=== PATIENT | male | born 1960 | race Caucasian/White ===

== ENCOUNTER 2017-07-11 16:07 | Emergency (ER) | payer OTHER ==
[~2017-07-11] VITALS: Ht 177.8 cm; Wt 71.0 kg
[~2017-07-11 16:07] MED LIST: PRLSR20 PO
[2017-07-11 16:17] VITALS: TEMP 36.4; Ht 177.8 cm; Wt 71.0 kg
[2017-07-11] MEDS ORDERED: OXYCODONE HCL IR 5 MG TAB (IMMEDIATE RELEASE) PO STA ×2 (16:49→18:46)
--- NOTE | 2017-07-11 17:09 | DIAGNOSTIC IMAGING REPORT ---
L TIBIA/FIBULA 2 VIEWS ROUTINE CLINICAL HISTORY: Left tibial pain. Trauma. COMPARISON: None. DISCUSSION: There is a nondisplaced oblique/transverse fracture of the proximal tibia at the metadiaphyseal junction. No fibular fractures are visualized. IMPRESSION: Nondisplaced fracture of the proximal tibia at the metadiaphyseal junction Electronically signed by: Casper Lepe M.D. 07/11/2017 5:07 PM Dictated Date/Time: 07/11/2017 5:06 PM
[2017-07-11] MEDS ORDERED: SERT50TA PO (17:45)
[2017-07-11] MEDS ORDERED: PRT/20 PO (17:45)
[2017-07-11] MEDS ORDERED: ASPI81TA28 PO (17:45)
[2017-07-11 18:25] VITALS: BP 155/94
--- NOTE | 2017-07-11 19:04 | Orthopedic Consultation ---
Orthopedic Consultation Date of Consultation: Jul 11, 2017. Attending Physician: Dr. Chung Lozoya Reason for Consultation: Left tibial fracture History of Present Illness This 57 yo M presented to the ED this afternoon c/o severe left knee pain that developed after miss stepping and feeling a pop in his leg. Pt states that he has had intermittent pain in the same leg for past several weeks which he attributes to a possible stress fracture that may have occurred while training for a 1/2 marathon that he recently ran in. Pt states that he has been using OTC Aleve for relief of pain/inflammation. At this time pt denies CP, SOB, Nausea, Vomiting, numbness/tingling in left lower extremity, obvious deformity but is unable to bear wt and rates pain as 8/10. Past Medical/Surgical History GERD, Depression Social History Smoking Status: Never Smoker Smokeless Tobacco Use: No Alcohol Use: none Drug Use: none Marital Status: Housing Status: lives with family Occupation Status: employed Allergies Coded Allergies: No Known Allergies (Verified , 07/11/17) Home Medications Scheduled Aspirin (Aspirin Ec), 81 MG PO DAILY Pantoprazole (Protonix), 20 MG PO BID Sertraline (Zoloft), 50 MG PO DAILY Review of Systems Constitutional: No fever, No chills, No sweats, No weight loss, No weakness, No fatigue, No problem reported Respiratory: No cough, No sputum, No wheezing, No shortness of breath, No dyspnea on exertion, No dyspnea at rest, No hemoptysis, No problem reported Cardiovascular: No chest pain, No orthopnea, No PND, No edema, No claudication , No palpitations, No problem reported Abdomen: No pain, No nausea, No vomiting, No diarrhea, No constipation, No GI bleeding, No problem reported Musculoskeletal: + swelling, + calf pain, No joint pain, No muscle pain, No problem reported Neurologic: No memory loss, No paralysis, No weakness, No numbness/tingling, No vertigo, No balance problems, No problem reported Integumentary: No rash, No itch, No new/changing skin lesions, No color change , No bleeding, No problem reported Physical Exam Date Time Temp Pulse Resp B/P (MAP) Pulse Ox O2 Delivery O2 Flow Rate FiO2 07/11/17 16:17 36.4 78 20 140/77 100 Room Air General Appearance: WD/WN, no apparent distress Head: normocephalic, atraumatic Eyes: PERRL, EOMI ENT: normal ENT inspection, pharynx normal Neck: supple, no adenopathy, trachea midline Respiratory/Chest: chest non-tender, lungs clear, normal breath sounds, no respiratory distress, no accessory muscle use Cardiovascular: regular rate, rhythm, no edema, no gallop, no JVD, no murmur, normal peripheral pulses Abdomen/GI: normal bowel sounds, non tender, soft Extremities/Musculoskelatal: + pertinent finding (Left lower leg: moderately tender to palpation over anterior surface of proximal tibia. Mild edema. Non tender over fibula. Knee ROM not tested due to splint placement. No referred pain with resisted flex/ext of great toe at IP and MTP. Cap refill<2 seconds. Periph pulses easily palpable. N/V intact in Left LE.) Neurologic/Psych: no motor/sensory deficits, alert, normal mood/affect, oriented x 3 Skin: normal color Lymphatic: no adenopathy Assessment & Plan Assessment: Nondisplaced left tibial shaft fracture Plan: Patient wants fracture treated conservatively with a long leg cast. ED will provided crutches and pain meds upon discharge. Dr. Chung Lozoya and myself will apply the cast. Patient is to f/u in our clinic next week. Call to schedule appointment.
[2017-07-11] MEDS ORDERED: OXYC1TAB3 PO (19:42)
--- NOTE | 2017-07-11 19:43 | DIAGNOSTIC IMAGING REPORT ---
L KNEE 1 OR 2 VIEWS CLINICAL HISTORY: CASTING LT KNEE COMPARISON: None. DISCUSSION: Image intensifier was utilized for bony alignment purposes. IMPRESSION: Image intensifier usage for bony positioning purposes The above report was generated using voice recognition software. It may contain grammatical, syntax or spelling errors. Electronically signed by: Pradeep Paris M.D. 07/11/2017 7:41 PM Dictated Date/Time: 07/11/2017 7:40 PM
[2017-07-11] MEDS ORDERED: OXYCODONE IR HOME PACK PO STA (19:44)
--- NOTE | 2017-07-11 19:44 | EMERGENCY ROOM VISIT NOTE ---
History First contact with patient: 16:33 Chief Complaint: FALK PAIN Stated Complaint: FELL, INTENSE PAIN IN LEFT LEG BELOW KNEE History of Present Illness The patient is a 57 year old male who presents to the Emergency Room via private vehicle with complaints of "fell, and takes pain in left leg below-knee ". The patient states that he has participated in the half marathon, and has been having some left anterior proximal falk pain. He states that that he had a mechanical fall today around 3:45 PM. He notes extreme pain to the anterior proximal left falk. He rates the pain as an 8/10. Review of Systems A complete 6-point Review of Systems was discussed with the patient, with pertinent positives and negatives listed in the History of Present Illness. All remaining Review of Systems questions can be considered negative unless otherwise specified. Social History Smoking Status: Never Smoker Smokeless Tobacco Use: No Drug Use: none Marital Status: Housing Status: lives with family Occupation Status: employed Current/Historical Medications Scheduled Aspirin (Aspirin Ec), 81 MG PO DAILY Pantoprazole (Protonix), 20 MG PO BID Sertraline (Zoloft), 50 MG PO DAILY Scheduled PRN Oxycodone Ir (Roxicodone Ir), 1-2 TAB PO Q4H PRN for Pain Physical Exam Vital Signs Date Time Temp Pulse Resp B/P (MAP) Pulse Ox O2 Delivery O2 Flow Rate FiO2 07/11/17 20:32 65 16 99 Room Air 07/11/17 18:25 78 16 155/94 98 Room Air 07/11/17 16:17 36.4 78 20 140/77 100 Room Air Physical Exam VITAL SIGNS - Vital signs and nursing notes were reviewed. Stable. GENERAL -57-year-old male appearing his stated age who is in no acute distress. Communicates well with provider and answers questions appropriately. SKIN - Without rashes. Skin overlying the left anterior falk is intact, but is edematous with evidence of contusion. EXTREMITIES - No clubbing or peripheral cyanosis. No pretibial edema present. Tenderness to palpation overlying the left anterior falk. +5/5 strength noted in UE/LE bilaterally. He is neurovascularly intact in this region. Medical Decision & Procedures ER Provider Diagnostic Interpretation: L TIBIA/FIBULA 2 VIEWS ROUTINE CLINICAL HISTORY: Left tibial pain. Trauma. COMPARISON: None. DISCUSSION: There is a nondisplaced oblique/transverse fracture of the proximal tibia at the metadiaphyseal junction. No fibular fractures are visualized. IMPRESSION: Nondisplaced fracture of the proximal tibia at the metadiaphyseal junction Electronically signed by: Casper Lepe M.D. 07/11/2017 5:07 PM Dictated Date/Time: 07/11/2017 5:06 PM Medications Administered Medications (Trade) Dose Ordered Sig/Victor Manuel Route Start Time Stop Time Status Last Admin Dose Admin Oxycodone HCl (Roxicodone Immediate Rel Tab) 5 mg NOW STAT PO 07/11/17 16:49 07/11/17 16:50 DC 07/11/17 17:04 5 MG Oxycodone HCl (Roxicodone Immediate Rel Tab) 5 mg NOW STAT PO 07/11/17 18:46 07/11/17 18:48 DC 07/11/17 18:53 5 MG Oxycodone HCl (Roxicodone Immediate Rel 5MG Home Pack) 1 homepack UD STAT PO 07/11/17 19:44 07/11/17 19:45 DC 07/11/17 20:22 1 HOMEPACK Medical Decision Patient was seen and evaluated as above. He presents to us today status post fall with left anterior falk pain. X-ray was obtained. He was given 1 OxyIR for his pain. X-ray results as above. Proximal tibia fracture. I discussed this with Dr. Winters, the orthopedic surgeon. He came to evaluate the patient. In the meantime he was given a posterior long-leg Ortho-Glass for comfort. He was offered higher strength pain medication, and declined. Orthopedics then came to evaluate and casted the leg. He then appeared stable for discharge. No evidence of compartment syndrome on exam. He'll be given a short course of oxycodone immediate release for his pain. He is to follow-up with orthopedics as they indicated. He was educated upon management, educated upon worrisome symptoms in which to return, had questions answered prior to discharge, and was discharged home in good condition. In the evaluation and treatment of this patient, the following differential diagnoses were considered: Patellar Fracture, Tibial Plateau Fracture, Distal Femur Fracture, ACL Injury, PCL Injury, Collateral Ligament Injury, tibia fracture, Pes Anserine Bursitis, Maisonneuve Fracture. [place] Drug Monitoring Program Search Results: patient reviewed within database, no issues identified Impression Primary Impression: Tibia fracture Departure Information Dispostion Home / Self-Care Condition GOOD Prescriptions Oxycodone Ir (Roxicodone Ir) 5 Mg Tab 1-2 TAB PO Q4H Y for Pain, #20 TAB For Initial Treatment Prov: Siddhartha Kay PA-C 07/11/17 Referrals Abdulaziz Ryder M.D.(JONNIE) (PCP) Chung Lozoya MD Patient Instructions ED Compartment Syndrome At Risk For, My [facility] Additional Instructions You have been treated in the Emergency Department for a tibial fracture. You have received pain medicine in the emergency department which impairs your ability to operate a vehicle. It is illegal for you to drive after receiving these medicines. You have been prescribed Oxy IR to be used for pain control. This is a narcotic medication. You cannot drive or consume alcohol while on this medicine. This medicine should only be used for pain that cannot be controlled with over-the- counter pain medicines. For pain control, you can use the following [id number] medicines (if >12 yo): - Regular strength (325mg/tab) Tylenol (acetaminophen) 2 tabs every 4-6 hours as needed. Do not exceed 12 tablets in a 24 hour period. Avoid taking more than 3 grams (3000 mg) of Tylenol per day. This includes any other sources of acetaminophen you may take on a regular basis. - Regular strength (200 mg/tab) Advil (ibuprofen) 1-2 tabs every 4-6 hours as needed. Do not exceed a dose of 3200 mg per day. If this is a recent injury (<24 hrs), ice can be applied to the area of pain for the first 3 days to help decrease pain and inflammation. Ice massages can be performed by freezing water in a paper cup, peeling back the cup to expose the ice and then massaging over the affected area. You have been placed in a cast here by the ortho team. Use the crutches you have been provided to keep ALL weight off of the knee until weight bearing is tolerable. Please follow up with orthopedics. Return to the Emergency Department if your current symptoms worsen despite treatment course outlined above. Patient is to f/u in our clinic next week. Call to schedule appointment.
--- NOTE | 2017-07-11 20:10 | DIAGNOSTIC IMAGING REPORT ---
L TIBIA/FIBULA 2 VIEWS ROUTINE CLINICAL HISTORY: Left Tibia fracture fracture COMPARISON: None. DISCUSSION: Anatomic alignment status post casting.] Tibial fracture is aligned anatomically. There is no evidence for soft tissue swelling. IMPRESSION: Anatomic alignment status post casting The above report was generated using voice recognition software. It may contain grammatical, syntax or spelling errors. Electronically signed by: Pradeep Paris M.D. 07/11/2017 8:09 PM Dictated Date/Time: 07/11/2017 8:09 PM
[2017-07-11 20:32] VITALS: PULSE 65; O2SAT 99
== END 2017-07-11 20:33 | disposition home or self-care (01) ==
LOC: C.EDB 16:08 → C.EDD 20:33
DX: S82.252A Displaced comminuted fracture of shaft of left tibia, initial encounter for closed fracture (principal); W19.XXXA Unspecified fall, initial encounter; Z79.82 Long term (current) use of aspirin

== ENCOUNTER → 2017-07-25 | Outpatient (CLI) | payer OTHER ==
[~2017-07-25] MED LIST changes: +ASPI81TA28 PO; +OXYC1TAB3 PO; -PRLSR20 PO; +PRT/20 PO; +SERT50TA PO
== END | disposition home or self-care (01) ==
LOC: C.RDSM 17:04
PROVIDERS: ATTEND Orthopaedic Surgery
DX: T14.8XXA Other injury of unspecified body region, initial encounter (principal); X58.XXXA Exposure to other specified factors, initial encounter

== ENCOUNTER → 2017-08-13 | Outpatient (CLI) | payer OTHER | END | disposition home or self-care (01) | LOC: C.RDSM 12:27 | PROVIDERS: ATTEND Orthopaedic Surgery | DX: T14.8XXA Other injury of unspecified body region, initial encounter (principal); X58.XXXA Exposure to other specified factors, initial encounter ==

== ENCOUNTER → 2017-08-29 | Outpatient (CLI) | payer OTHER ==
[~2017-08-29] MED LIST changes: +ALBUAER INH; +MELA1CAP9 PO; +SERT1TAB68 PO
== END | disposition home or self-care (01) ==
LOC: C.RDSM 13:30
PROVIDERS: ATTEND Orthopaedic Surgery
DX: T14.8XXA Other injury of unspecified body region, initial encounter (principal); X58.XXXA Exposure to other specified factors, initial encounter

== ENCOUNTER 2017-09-02 18:08 | Emergency (ER) | payer OTHER ==
[~2017-09-02] VITALS: Ht 177.8 cm; Wt 74.8 kg
[~2017-09-02 18:08] MED LIST changes: -ALBUAER INH; -MELA1CAP9 PO; -SERT1TAB68 PO
[2017-09-02 18:12] VITALS: TEMP 36.4; Ht 177.8 cm; Wt 74.8 kg
--- NOTE | 2017-09-02 18:30 | EMERGENCY ROOM VISIT NOTE ---
History Report prepared by Tika: Nikhil Curiel Under the Supervision of: Dr. Jason Morgan M.D. First contact with patient: 18:12 Chief Complaint: SWELLING TO EXTREMITY Stated Complaint: L LEG SWELLING, POSSIBLE CLOT (DVT) History of Present Illness The patient is a 57 year old male who presents to the Emergency Room with complaints of left lower extremity swelling that began a couple of days ago. He has a past medical history of a proximal tibia fracture to his left leg that occurred 7.5 weeks ago. Four days ago, he had his cast removed. Since then, he has noticed that every time that he takes off his left sock, his skin is indented and he noticed that he has some pitting edema above his sock line. This has never happened to him before. He denies any personal or family history of blood clots. He denies any loss of consciousness, trauma, injury, fevers, chest pain, shortness of breath, nausea, vomiting, abdominal pain, back pain, diarrhea, or abnormal urinary symptoms. He states that he is having some mild pain and weakness in his left lower leg secondary to his fracture and his leg being in a cast for so long. However, he denies any severe variants of these two symptoms. He is currently taking Protonix, Zoloft, and a baby Aspirin. He notes that he was on a full strength Aspirin when his leg was casted. Source of History: patient Onset: a couple of days ago Position: leg (left) Symptom Intensity: mild Quality: other (Lower extremity edema) Timing: constant Associated Symptoms: No LOC, No fevers, No chest pain, No SOB, No nausea, No vomiting, No abdominal pain, No back pain, No diarrhea, No urinary symptoms, No weakness, No numbness Review of Systems See HPI for pertinent positives & negatives. A total of 10 systems reviewed and were otherwise negative. Past Medical & Surgical Medical Problems: (1) Closed fracture of left proximal tibia (2) GERD (gastroesophageal reflux disease) Old medical records were reviewed. Nurse's notes were reviewed and I agree with. Family History Patient reports no known family medical history. Social History Smoking Status: Never Smoker Drug Use: none Marital Status: Housing Status: lives with family Occupation Status: employed Current/Historical Medications Scheduled Aspirin (Aspirin Ec), 81 MG PO DAILY Melatonin (Melatonin), 10 MG PO HS Pantoprazole (Protonix), 20 MG PO BID Sertraline Hcl (Zoloft), 50 MG PO DAILY Scheduled PRN Albuterol Sulfate (Proventil Hfa), 2 PUFFS INH UD PRN for Exercise Induced Asthma Allergies Coded Allergies: No Known Allergies (Verified , 09/02/17) Physical Exam Vital Signs Date Time Temp Pulse Resp B/P (MAP) Pulse Ox O2 Delivery O2 Flow Rate FiO2 09/02/17 19:36 66 16 132/89 99 09/02/17 19:29 66 16 132/89 95 Room Air 09/02/17 18:12 36.4 89 16 156/96 96 Room Air Physical Exam General: Non-ill appearing middle aged male in no acute distress. HEENT: Normal cephalic atraumatic. Pupils are equal round and reactive to light. Extraocular movements are intact. Oropharynx is pink with moist mucous membranes. No swelling of the mouth lips or tongue. Neck: Supple with a midline trachea. Chest: Clear to auscultation bilaterally. No wheezes or rhonchi. No increased work of breathing. Heart: regular rate and rhythm. Abdomen: Soft nontender, nondistended without rebound guarding or rigidity. Extremities: Left lower extremity has some mild edema to the central falk. No redness or warmth. No evidence of cellulitis. Normal motor and sensation. No evidence of compartment syndrome. Spine/Back. Non tender to palpation. No CVA tenderness Skin: Good turgor without rashes. Neurologic exam: Nonfocal with normal motor and sensation of the left lower extremity Medical Decision & Procedures ER Provider Diagnostic Interpretation: Radiology results as stated below per my review and radiologist interpretation: L VENOUS DOPP LOWER EXT UNILAT HISTORY: 57 years-old Male eval for DVT LLE acute left lower extremity pain COMPARISON: Left tibia and fibula radiographs 08/29/2017 TECHNIQUE: Multiple real-time sonographic images of the left lower extremity deep venous structures were obtained assessing grayscale appearance, color and spectral flow FINDINGS: There is normal compressibility, flow, phasicity and augmentation of the left lower extremity deep venous structures. IMPRESSION: No sonographic evidence of deep venous thrombosis. The above report was generated using voice recognition software. It may contain grammatical, syntax or spelling errors. Electronically signed by: Juan Valdivia M.D. 09/02/2017 7:12 PM Dictated Date/Time: 09/02/2017 7:10 PM Laboratory Results 09/02/17 18:30 Red Blood Count 4.88, Mean Corpuscular Volume 93.6, Mean Corpuscular Hemoglobin 32.2, Mean Corpuscular Hemoglobin Concent 34.4, Mean Platelet Volume 9.8, Neutrophils (%) (Auto) 54.7, Lymphocytes (%) (Auto) 33.2, Monocytes (%) (Auto) 7.2, Eosinophils (%) (Auto) 3.9, Basophils (%) (Auto) 0.8, Neutrophils # (Auto) 3.37, Lymphocytes # (Auto) 2.04, Monocytes # (Auto) 0.44, Eosinophils # (Auto) 0.24, Basophils # (Auto) 0.05 09/02/17 18:30 Test 09/02/17 18:30 White Blood Count 6.15 K/uL (4.8-10.8) Red Blood Count 4.88 M/uL (4.7-6.1) Hemoglobin 15.7 g/dL (14.0-18.0) Hematocrit 45.7 % (42-52) Mean Corpuscular Volume 93.6 fL (80-100) Mean Corpuscular Hemoglobin 32.2 pg (25-34) Mean Corpuscular Hemoglobin Concent 34.4 g/dl (32-36) Platelet Count 304 K/uL (130-400) Mean Platelet Volume 9.8 fL (7.4-10.4) Neutrophils (%) (Auto) 54.7 % Lymphocytes (%) (Auto) 33.2 % Monocytes (%) (Auto) 7.2 % Eosinophils (%) (Auto) 3.9 % Basophils (%) (Auto) 0.8 % Neutrophils # (Auto) 3.37 K/uL (1.4-6.5) Lymphocytes # (Auto) 2.04 K/uL (1.2-3.4) Monocytes # (Auto) 0.44 K/uL (0.11-0.59) Eosinophils # (Auto) 0.24 K/uL (0-0.5) Basophils # (Auto) 0.05 K/uL (0-0.2) RDW Standard Deviation 43.3 fL (36.4-46.3) RDW Coefficient of Variation 12.7 % (11.5-14.5) Immature Granulocyte % (Auto) 0.2 % Immature Granulocyte # (Auto) 0.01 K/uL (0.00-0.02) Prothrombin Time 9.8 SECONDS (9.0-12.0) Prothromb Time International Ratio 0.9 (0.9-1.1) Activated Partial Thromboplast Time 22.9 SECONDS (21.0-31.0) Partial Thromboplastin Ratio 0.9 Anion Gap 7.0 mmol/L (3-11) Est Creatinine Clear Calc Drug Dose 77.2 ml/min Estimated GFR () 86.9 Estimated GFR (Non- 74.9 BUN/Creatinine Ratio 13.7 (10-20) Calcium Level 8.9 mg/dl (8.5-10.1) Laboratory studies as stated above per my review. ED Course 1811: Past medical records reviewed. The patient was evaluated in room C3, and a complete history and physical examination were performed. 1836: The patient is being taken to [facility]. 1914: Upon reevaluation, he is doing well. We are waiting for his official [facility] report. 1933: Upon reevaluation, the patient is resting. I discussed the results and treatment plan with him. He verbalized agreement of the treatment plan. The patient was discharged home. Medical Decision Differentials include, but are not limited to; musculoskeletal pain, infection, and compartment syndrome. This patient comes in as described above. He has had some mild edema in his left mid falk and has been in splint he was prior for a fractured tibia week. Concerned about the possibility of DVT. He has had No chest pain shortness of breath. The patient had an ultrasound which was negative and showed no evidence of DVT. He has no white count or fever to suggest infection. He has no acute electrolyte or metabolic abnormality. He has nothing to suggest compartment syndrome or cellulitis. He was discharged home, he should rest and elevate return if increasing pain, worsening of symptoms, any problems or concerns and follow-up with his doctor this week for recheck. Medication Reconcilliation Current Medication List: was personally reviewed by me Blood Pressure Screening Patient's blood pressure: Normal blood pressure Blood pressure disposition: Did not require urgent referral Impression Primary Impression: Swelling of left lower extremity Scribe Attestation The scribe's documentation has been prepared under my direction and personally reviewed by me in its entirety. I confirm that the note above accurately reflects all work, treatment, procedures, and medical decision making performed by me. Departure Information Dispostion Home / Self-Care Referrals Abdulaziz Ryder M.D.(JONNIE) Forms HOME CARE DOCUMENTATION FORM, IMPORTANT VISIT INFORMATION, WORK / SCHOOL INSTRUCTIONS Patient Instructions My [facility] Additional Instructions Rest. Elevate. Return if: increasing pain, numbness or weakness, fever or chills, worsening symptoms, any new problems or concerns Follow-up with your doctor for recheck this week
[2017-09-02 18:46] LABS: BASO % 0.8 %; BASO ABS # 0.05 K/uL (0-0.2); COMPLETE YES; EOS % 3.9 %; HEMATOCRIT 45.7 % (42-52); IG% 0.2 %; LYMPH % 33.2 %; LYMPH ABS # 2.04 K/uL (1.2-3.4); MEAN CELL VOLUME 93.6 fL (80-100); MEAN CORPUSCULAR HEMOGLOBIN 32.2 pg (25-34); MEAN CORPUSCULAR HGB CONC 34.4 g/dl (32-36); MEAN PLATELET VOLUME 9.8 fL (7.4-10.4); MONO % 7.2 %; NEUT % 54.7 %; PLATELET COUNT 304 K/uL (130-400); RED BLOOD COUNT 4.88 M/uL (4.7-6.1); WHITE BLOOD COUNT 6.15 K/uL (4.8-10.8)
[2017-09-02 18:55] LABS: INR 0.9 (0.9-1.1); PARTIAL THROMBOPLASTIN RATIO 0.9; PROTHROMBIN TIME (PATIENT) 9.8 SECONDS (9.0-12.0)
--- NOTE | 2017-09-02 19:13 | DIAGNOSTIC IMAGING REPORT ---
L VENOUS DOPP LOWER EXT UNILAT HISTORY: 57 years-old Male eval for DVT LLE acute left lower extremity pain COMPARISON: Left tibia and fibula radiographs 08/29/2017 TECHNIQUE: Multiple real-time sonographic images of the left lower extremity deep venous structures were obtained assessing grayscale appearance, color and spectral flow FINDINGS: There is normal compressibility, flow, phasicity and augmentation of the left lower extremity deep venous structures. IMPRESSION: No sonographic evidence of deep venous thrombosis. The above report was generated using voice recognition software. It may contain grammatical, syntax or spelling errors. Electronically signed by: Juan Valdivia M.D. 09/02/2017 7:12 PM Dictated Date/Time: 09/02/2017 7:10 PM
[2017-09-02] MEDS ORDERED: SERT1TAB68 PO (19:15)
[2017-09-02] MEDS ORDERED: MELA1CAP9 PO (19:15)
[2017-09-02] MEDS ORDERED: ALBUAER INH (19:15)
[2017-09-02 19:28] LABS: BUN/CREATININE RATIO 13.7 (10-20); CALCIUM 8.9 mg/dl (8.5-10.1); CREATININE 1.09 mg/dl (0.60-1.40)
[2017-09-02 19:36] VITALS: BP 132/89; PULSE 66; O2SAT 99
== END 2017-09-02 19:32 | disposition home or self-care (01) ==
LOC: C.EDB 18:11 → C.EDC 19:32
DX: M79.89 Other specified soft tissue disorders (principal); Z87.81 Personal history of (healed) traumatic fracture; K21.9 Gastro-esophageal reflux disease without esophagitis; Z79.82 Long term (current) use of aspirin; Z79.899 Other long term (current) drug therapy

== ENCOUNTER → 2017-10-03 | Outpatient (CLI) | payer OTHER ==
[~2017-10-03] MED LIST changes: +ALBUAER INH; +MELA1CAP9 PO; -OXYC1TAB3 PO; +SERT1TAB68 PO; -SERT50TA PO
== END | disposition home or self-care (01) ==
LOC: C.RDSM 09:12
PROVIDERS: ATTEND Orthopaedic Surgery
DX: S82.92XA Unspecified fracture of left lower leg, initial encounter for closed fracture (principal); X58.XXXA Exposure to other specified factors, initial encounter

== ENCOUNTER → 2017-11-14 | Outpatient (CLI) | payer OTHER | END | disposition home or self-care (01) | LOC: C.RDSM 10:28 | PROVIDERS: ATTEND Orthopaedic Surgery | DX: T14.8XXA Other injury of unspecified body region, initial encounter (principal); X58.XXXA Exposure to other specified factors, initial encounter ==

== ENCOUNTER → 2018-01-20 | Outpatient (CLI) | payer OTHER | END | disposition home or self-care (01) | LOC: C.LAB 08:41 | PROVIDERS: ATTEND Family Medicine | DX: R97.20 Elevated prostate specific antigen [PSA] (principal) ==

== ENCOUNTER → 2018-05-05 | Outpatient (CLI) | payer OTHER | END | disposition home or self-care (01) | LOC: C.RDSM 14:57 | PROVIDERS: ATTEND Orthopaedic Surgery | DX: M79.661 Pain in right lower leg (principal) ==

== ENCOUNTER 2021-07-26 10:25 | Observation (INO) ==
[2021-07-26] MEDS ORDERED: HYDROmorphone INJ 1 MG/ML SYRINGE IV STA (11:07)
[2021-07-26] MEDS ORDERED: ONDANSETRON INJ 2 MG/ML 2 ML VIAL IV STA (11:07)
[2021-07-26] MEDS ORDERED: SODIUM CHLORIDE 0.9% 1000ML 1,000 ML IV ONE (11:07)
--- NOTE | 2021-07-26 11:13 | Emergency Department Note ---
History of Present Illness General Chief complaint: Abdominal Pain Stated complaint: SEVERE ABD PAIN Time Seen by Provider: 07/26/21 10:54 Source: patient Mode of arrival: ambulatory Limitations: no limitations History of Present Illness Maximum Pain Intensity: 8 This patient is a 61-year-old previously healthy male who comes in after having abdominal pain which started overnight around 4:00 in the morning. He did eat a large amount of cheesy popcorn and also had a couple glasses of scotch as he had a very stressful day he has diffuse central abdominal pain he thought he might be constipated so try to have a bowel movement this morning a small bowel movement without blood or melena. He had 2 similar episodes in the past that just got better on their own. This is been persistent so he is concerned. It h urts with movement and seems to be persistent. He said when he tried to take medicine and fluids he threw up. He has had no dysuria hematuria he did have remote history of kidney stones as feels different no back pain. No chest pain or shortness of breath he said the Covid vaccine x2 the been no trauma or injury. No fever or chills. No abdominal surgeries. Home Medications Medication Instructions Recorded Confirmed Type ASPIRIN (ASPIRIN EC) 81 mg PO DAILY #0 07/11/17 History Albuterol Sulfate (Proventil Hfa) 2 puff INHALATION UD PRN #0 09/02/17 History MELATONIN 10 mg PO HS #0 09/02/17 History esomeprazole magnesium 40 mg 40 mg PO BID #180 cap 11/15/20 Rx capsule,delayed release Allergies Allergy/AdvReac Type Severity Reaction Status Date / Time No Known Allergies Allergy Verified 09/02/17 18:12 Past Med/Surg History Social History Smoking Status: Never smoker Feels Safe at Home: Yes Review of Systems A total of 10 systems reviewed and were otherwise negative Physical Exam Vital Signs Vital Signs - 24 hr 07/26/21 10:31 07/26/21 11:20 07/26/21 11:24 Temperature 36.5 C Temperature Source Oral Pulse Rate 58 L 68 63 Pulse Rate [Apical] 63 Pulse Rate from SpO2 Sensor 62 Respiratory Rate 18 18 20 Blood Pressure 161/82 H Blood Pressure [Right Arm] 178/83 H Blood Pressure Mean 108 Blood Pressure Mean [Right Arm] 114 Pulse Oximetry 99 99 100 Oxygen Delivery Method Room Air Room Air Sepsis Recent Fever Within 48 Hours No Sepsis New/Unexplained Change in Mental Status No Sepsis Action Taken by Nursing No Action Required 07/26/21 11:30 07/26/21 11:40 07/26/21 11:50 Temperature Temperature Source Pulse Rate 73 48 L 64 Pulse Rate [Apical] Pulse Rate from SpO2 Sensor 71 54 L 63 Respiratory Rate 19 11 L 20 Blood Pressure 183/99 H Blood Pressure [Right Arm] Blood Pressure Mean 127 Blood Pressure Mean [Right Arm] Pulse Oximetry 100 95 95 Oxygen Delivery Method Sepsis Recent Fever Within 48 Hours Sepsis New/Unexplained Change in Mental Status Sepsis Action Taken by Nursing General: Well developed well nourished uncomfortable appearing middle-aged male who is complaining of pain but otherwise appears in no acute respiratory distress, breathing comfortably on room air. Normal speech HEENT: Normal cephalic atraumatic. Sclera anicteric. Pupils are equal round and reactive to light. Extraocular movements are intact. Oropharynx is pink with moist mucous membranes. No swelling of the mouth lips or tongue. Neck: Supple with a midline trachea. No meningeal signs or stiffness, no JVD or bruits. No Stridor. Chest: Clear to auscultation bilaterally. No wheezes or rhonchi. No increased work of breathing. Heart: Regular rate and rhythm without murmurs or gallops. Abdomen: Soft mildly distended with mild diffuse tenderness without rebound guarding or rigidity. Extremities: No cyanosis clubbing or edema. No calf tenderness or assymetry Spine/Back. Non tender to palpation. No CVA tenderness Skin: Good turgor without rashes. Neurologic exam: Cranial nerves two through 12 are intact. Motor and sensation are intact and symmetrical throughout. Course Administered Medications Discontinued Medications Hydromorphone HCl (Hydromorphone Inj 1 Mg/Ml Syringe) 1 mg IV NOW STA Stop: 07/26/21 11:08 Last Admin: 07/26/21 11:27 Dose: 1 mg Documented by: [id number] Hydromorphone HCl (Hydromorphone Inj 0.5 Mg/0.5 Ml Syr) 0.5 mg IV NOW STA Stop: 07/26/21 12:35 Last Admin: 07/26/21 12:48 Dose: 0.5 mg Documented by: [id number] Sodium Chloride (Nss 1000ml) 1,000 mls @ 999 mls/hr IV .Q1H1M ONE Stop: 07/26/21 12:07 Last Infusion: 07/26/21 11:59 Dose: 0 mls/hr Documented by: [id number] Admin: 07/26/21 11:23 Dose: 999 mls/hr Documented by: [id number] Ioversol (Optiray 320 100ml) 93 ml IV ONCE ONE Stop: 07/26/21 12:21 Last Admin: 07/26/21 12:20 Dose: 93 ml Documented by: [id number] Ondansetron HCl (Ondansetron Inj 2 Mg/Ml 2 Ml Vial) 4 mg IV NOW STA Stop: 07/26/21 11:08 Last Admin: 07/26/21 11:27 Dose: 4 mg Documented by: [id number] Medical Decision Making Differential Diagnosis Gastritis, pancreatitis, colitis, bowel obstruction, diverticulitis, vascular disease, infection, electrolyte or metabolic abnormality, cardiac disease, kidney stone Medical Records Attestation: I reviewed the patient's medical records. Home Medications Current Medication List: was personally reviewed by me Laboratory Data Attestation: I reviewed the patient's lab results. Result diagrams: 07/26/21 11:17 07/26/21 11:17 Lab Results 07/26/21 07/26/21 Range/Units 11:17 11:17 WBC 11.77 H (4.8-10.8) K/uL RBC 4.98 (4.7-6.1) M/uL Hgb 15.5 (14.0-18.0) g/dL Hct 44.8 (42-52) % MCV 90.0 (80-100) fL MCH 31.1 (25-34) pg MCHC 34.6 (32-36) g/dL RDW Std Deviation 40.5 (36.4-46.3) fL RDW Coeff of Jamal 12.4 (11.5-14.5) % Plt Count 300 (130-400) K/uL MPV 10.3 (7.4-10.4) fL Immature Gran % (Auto) 0.2 % Neut % (Auto) 89.5 % Lymph % (Auto) 6.2 % [place] % (Auto) 3.7 % Eos % (Auto) 0.1 % Baso % (Auto) 0.3 % Neut # (Auto) 10.55 H (1.4-6.5) K/uL Lymph # (Auto) 0.73 L (1.2-3.4) K/uL [place] # (Auto) 0.43 (0.11-0.59) K/uL Eos # (Auto) 0.01 (0-0.5) K/uL Baso # (Auto) 0.03 (0-0.2) K/uL Immature Gran # (Auto) 0.02 (0.00-0.02) K/uL Sodium 138 (136-145) mmol/L Potassium 3.5 (3.5-5.1) mmol/L Chloride 106 (98-107) mmol/L Carbon Dioxide 22 (21-32) mmol/L Anion Gap 10.0 (3-11) BUN 18 (7-18) mg/dl Creatinine 1.15 (0.6-1.4) mg/dl Est Cr Clr Drug Dosing 69.6 ml/min Est GFR ( Amer) 79.2 ml/min Est GFR (Non-Af Amer) 68.3 ml/min BUN/Creatinine Ratio 16.0 (10-20) Glucose 137 H (70-99) mg/dl Calcium 9.7 (8.5-10.1) mg/dl Total Bilirubin 0.9 (0.2-1) mg/dl AST 18 (15-37) U/L ALT 23 (12-78) U/L Alkaline Phosphatase 143 H (45-117) U/L Troponin I < 0.015 (0-0.045) ng/ml Total Protein 8.1 (6.4-8.2) gm/dl Albumin 3.9 (3.4-5.0) gm/dl Globulin 4.2 H (2.5-4.0) gm/dl Albumin/Globulin Ratio 0.9 (0.9-2) Lipase 83 (73-393) U/L Imaging Data Attestation: I personally reviewed and interpreted this imaging study as follows: Radiologist's Impression: Abdomen/Pelvis CT 07/26/21 11:[address] WITH IV CONTRAST CT DOSE: 658.85 mGycm HISTORY: Acute generalized abdominal pain with nausea and vomiting abd pain TECHNIQUE: Multiaxial CT images of the abdomen and pelvis were performed following the IV administration of 93 cc of Optiray, A dose lowering technique was utilized adhering to the principles of ALARA. COMPARISON STUDY: None. FINDINGS: Imaged inferior cardiac chambers are unremarkable. Clear lung bases. No pneumatosis or pneumoperitoneum. Unremarkable spleen, pancreas, adrenal glands and liver appear unremarkable. Patency of the portal vein. Distended gallbladder measures up to 10 cm in length. Mild associated wall thickening with trace pericholecystic edema. Mild extrahepatic biliary ductal prominence. No choledocholithiasis identified. Sludge within the gallbladder neck without definite cholelithiasis. There are several nonobstructing calculi of the bilateral kidneys measuring up to 3 mm on the left and 4 mm on the right. No ureteral calculi or hydronephrosis. Prostamegaly. Unremarkable urinary bladder. Phleboliths of the pelvis. Aorta and IVC are unremarkable. Surgical clips of the upper scrotum. Mild distal esophageal wall thickening with small hiatal hernia. Prominent lymph nodes adjacent to the distal esophagus measure up to 8 mm, likely reactive. No bowel obstruction or bowel wall thickening. The large bowel is predominately decompressed. The appendix is mildly dilated measuring up to 9 mm. No periappendiceal inflammation. Unremarkable soft tissues. There is no acute fracture. IMPRESSION: 1. Distended gallbladder with mild wall thickening and trace pericholecystic fluid is suggestive of acute cholecystitis. 2. The appendix is distended measuring up to 9 mm. There is no periappendiceal inflammation to suggest acute appendicitis. This may be physiologic with an underlying appendiceal lesion also within the differential. Surgical consultation is recommended. 3. No bowel obstruction or bowel wall thickening. 4. Mild distal esophageal wall thickening with small hiatal hernia. 5. Nonobstructing bilateral nephrolithiasis. ACT 112: Negative or not required by law. The above report was generated using voice recognition software. It may contain grammatical, syntax or spelling errors. Electronically signed by: Bryant Valdivia M.D. 07/26/2021 12:51 PM Chest X-Ray 07/26/21 11:08 XR chest 1V portable CLINICAL HISTORY: abd pain TECHNIQUE: Single frontal radiograph of the chest was obtained. Comparison: Comparison is made to chest 2 views 10/09/2019 FINDINGS: No lines and tubes are seen. The cardiomediastinal silhouette is normal. The lungs are clear. No evidence of pleural effusion or pneumothorax. IMPRESSION: No acute chest disease. ACT 112: Negative or not required by law. Electronically signed by: Joe Guzmán M.D. 07/26/2021 11:49 AM ECG Data Attestation: I personally reviewed and interpreted this ECG as follows: Indication: + abdominal pain Rate (beats per minute): 48 Rhythm: + sinus bradycardia ECG Intervals/blocks: + Normal QRS, + Normal QT and + Normal PA ECG [place]: + Normal ECG ST segments: + Normal ST segments ECG Findings: no PACs or no PVCs Comparison ECG Date: from (03/01/08) Change: no significant change MDM Narrative This patient comes in as described above. He has been een having significant abdominal pain. He appears uncomfortable. IV access established and blood work was obtained as well as EKG and chest x-ray. Also order CAT scan of the abdomen with IV contrast. He was hydrated with a 1 L IV normal saline bolus he was given Dilaudid 1 mg IV and Zofran 4 mg IV he tells me he is not driving. Urinalysis was obtained as well. His white count is mildly elevated. He has no signal electrolyte or metabolic abnormalities. There is nothing to suggest liver, gallbladder, or pancreas disease. EKG was unremarkable does not suggest acute coronary syndrome or significant arrhythmia. His CAT scan shows acute cholecystitis. Additionally there is concern for dilated appendix. I did consult Dr. Castellanos from surgery and he saw the patient in the ER he is going to take him to the OR. He did recommend giving him 2 g of Mefoxin which I did the patient was kept n.p.o. he did receive a second dose of IV Dilaudid 0.5 mg is much more comfortable he will be taken to the OR for cholecystectomy and further treatment and evaluation. Continuous cardiac monitoring: Orders placed in EMR for continuous cardiac mon itoring upon my interpretation shows a normal sinus rhythm with a rate of 70. Impression & Plan Abdominal pain, Acute cholecystitis, Nausea & vomiting, History of renal calculi Discharge Plan Visit Data Chief Complaint: Abdominal Pain Stated Complaint: SEVERE ABD PAIN ED Provider: Jason Morgan Discharge Problem: Abdominal pain, Acute cholecystitis, Nausea & vomiting, History of renal calculi Forms Stand Alone Forms: [facility] Prescriptions Prescriptions: No Action ASPIRIN (ASPIRIN EC) 81 MG tablet 81 mg PO DAILY Qty: 0 RF: 0 Albuterol Sulfate (Proventil Hfa) 108 MCG/ACT AER 2 puff Inhalation UD PRN (Reason: Exercise Induced Asthma) Qty: 0 RF: 0 MELATONIN 10 MG capsule 10 mg PO HS Qty: 0 RF: 0 esomeprazole magnesium 40 mg capsule,delayed release(DR/EC) 40 mg PO BID Qty: 180 RF: 4 Referrals Referrals: Lefty Ruby DO [Primary Care Provider] -
[2021-07-26 11:25] LABS: Basophils # (auto) 0.03 K/uL (0-0.2); Basophils % (auto) 0.3 %; Eosinophils # (auto) 0.01 K/uL (0-0.5); Eosinophils % (auto) 0.1 %; Hematocrit (blood only) 44.8 % (42-52); Hemoglobin 15.5 g/dL (14.0-18.0); Immature Granulocytes # (auto) 0.02 K/uL (0.00-0.02); Immature Granulocytes % (auto) 0.2 %; Lymphocytes # (auto) 0.73 K/uL (1.2-3.4); Lymphocytes % (auto) 6.2 %; Mean Corpuscular Hemoglobin 31.1 pg (25-34); Mean Corpuscular Hgb Conc 34.6 g/dL (32-36); Mean Platelet Volume 10.3 fL (7.4-10.4); Monocytes # (auto) 0.43 K/uL (0.11-0.59); Monocytes % (auto) 3.7 %; Neutrophils # (auto) 10.55 K/uL (1.4-6.5); Neutrophils % (auto) 89.5 %; Platelet Count 300 K/uL (130-400); RDW Coefficient of Variation 12.4 % (11.5-14.5); RDW Standard Deviation 40.5 fL (36.4-46.3); Red Blood Count 4.98 M/uL (4.7-6.1); White Blood Count 11.77 K/uL (4.8-10.8)
[2021-07-26 11:49] LABS: Alanine Aminotransferase 23 U/L (12-78); Albumin Level 3.9 gm/dl (3.4-5.0); Aspartate Aminotransferase 18 U/L (15-37); Blood Urea Nitrogen 18 mg/dl (7-18); Calcium 9.7 mg/dl (8.5-10.1); Carbon Dioxide 22 mmol/L (21-32); Chloride 106 mmol/L (98-107); Creatinine Clr Calc Pharmacy 69.6 ml/min; Est GFR (African American) 79.2 ml/min; Est GFR (Non-African American) 68.3 ml/min; Glucose 137 mg/dl (70-99); Lipase 83 U/L (73-393); Potassium 3.5 mmol/L (3.5-5.1); Sodium 138 mmol/L (136-145)
--- NOTE | 2021-07-26 11:50 | XRay Report ---
XR chest 1V portable CLINICAL HISTORY: abd pain TECHNIQUE: Single frontal radiograph of the chest was obtained. Comparison: Comparison is made to chest 2 views 10/09/2019 FINDINGS: No lines and tubes are seen. The cardiomediastinal silhouette is normal. The lungs are clear. No evid ence of pleural effusion or pneumothorax. IMPRESSION: No acute chest disease. ACT 112: Negative or not required by law. Electronically signed by: Joe Guzmán M.D. 07/26/2021 11:49 AM
[2021-07-26 11:54] LABS: Albumin Globulin Ratio 0.9 (0.9-2); Alkaline Phosphatase 143 U/L (45-117); Bilirubin,Total 0.9 mg/dl (0.2-1); Globulin 4.2 gm/dl (2.5-4.0); Total Protein 8.1 gm/dl (6.4-8.2); Troponin I < 0.015 ng/ml (0-0.045)
[2021-07-26] MEDS ORDERED: OPTIRAY 320 100ml IV ONE (12:20)
[2021-07-26] MEDS ORDERED: HYDROmorphone INJ 0.5 MG/0.5 ML SYR IV STA (12:34)
--- NOTE | 2021-07-26 12:52 | CT Scan Report ---
ABDOMEN AND PELVIS CT WITH IV CONTRAST CT DOSE: 658.85 mGycm HISTORY: Acute generalized abdominal pain with nausea and vomiting abd pain TECHNIQUE: Multiaxial CT images of the abdomen and pelvis were performed following the IV administrat ion of 93 cc of Optiray, A dose lowering technique was utilized adhering to the principles of ALARA. COMPARISON STUDY: None. FINDINGS: Imaged inferior cardiac chambers are unremarkable. Clear lung bases. No pneumatosis or pneu moperitoneum. Unremarkable spleen, pancreas, adrenal glands and liver appear unremarkable. Patency of the portal vein. Distended gallbladder measures up to 10 cm in length. Mild associated wall thickeni ng with trace pericholecystic edema. Mild extrahepatic biliary ductal prominence. No choledocholithia sis identified. Sludge within the gallbladder neck without definite cholelithiasis. There are several nonobstructing calculi of the bilateral kidneys measuring up to 3 mm on the left an d 4 mm on the right. No ureteral calculi or hydronephrosis. Prostamegaly. Unremarkable urinary bladde r. Phleboliths of the pelvis. Aorta and IVC are unremarkable. Surgical clips of the upper scrotum. Mild distal esophageal wall thickening with small hiatal hernia. Prominent lymph nodes adjacent to th e distal esophagus measure up to 8 mm, likely reactive. No bowel obstruction or bowel wall thickening . The large bowel is predominately decompressed. The appendix is mildly dilated measuring up to 9 mm. No periappendiceal inflammation. Unremarkable soft tissues. There is no acute fracture. IMPRESSION: 1. Distended gallbladder with mild wall thickening and trace pericholecystic fluid is suggestive of a cute cholecystitis. 2. The appendix is distended measuring up to 9 mm. There is no periappendiceal inflammation to sugges t acute appendicitis. This may be physiologic with an underlying appendiceal lesion also within the d ifferential. Surgical consultation is recommended. 3. No bowel obstruction or bowel wall thickening. 4. Mild distal esophageal wall thickening with small hiatal hernia. 5. Nonobstructing bilateral nephrolithiasis. ACT 112: Negative or not required by law. The above report was generated using voice recognition software. It may contain grammatical, syntax o r spelling errors. Electronically signed by: Bryant Valdivia M.D. 07/26/2021 12:51 PM
[2021-07-26] MEDS ORDERED: cefOXitin 2,000 MG/60 ML BAG IV STA (13:43)
[2021-07-26] MEDS ORDERED: ONDANSETRON INJ 2 MG/ML 2 ML VIAL ONE ×3 (13:56→16:52)
[2021-07-26] MEDS ORDERED: GLYCOPYRROLATE 0.2 MG/ML VIAL ONE ×3 (13:56→17:04)
[2021-07-26] MEDS ORDERED: MIDAZOLAM HCL 1 MG/ML 2ML VIAL ONE (13:56)
[2021-07-26] MEDS ORDERED: ROCURONIUM BROMIDE 10 MG/ML 5 ML VIAL IV ONE ×2 (13:56→16:52)
[2021-07-26] MEDS ORDERED: LIDOCAINE 2% 2 ML VIAL/AMP(20MG/ML) INFIL ONE ×2 (13:56→15:17)
[2021-07-26] MEDS ORDERED: fentaNYL citrate 100 MCG/2 ML VIAL ONE ×2 (13:56→17:03)
[2021-07-26] MEDS ORDERED: PROPOFOL IV EMULSION 10 MG/ML 20 ML VIAL IV ONE ×2 (13:56→15:17)
[2021-07-26] MEDS ORDERED: NEOSTIGMINE METHYLSULFATE 1 MG/ML 10ML VIAL ONE ×2 (13:56→15:17)
[2021-07-26] MEDS ORDERED: DEXAMETHASONE SOD INJ 4 MG/ML VIAL ONE ×2 (13:56→15:17)
--- NOTE | 2021-07-26 13:57 | History & Physical Report ---
Date of Service July 26, 2021 Assessment & Plan (1) Acute cholecystitis: Plan: Patient has evidence on his CAT scan of acute cholecystitis-distended gallbladder thickened with sludge He has an elevated alkaline phosphatase but his other liver functions are normal Mildly dilated appendix but otherwise completely normal with no inflammation no symptoms in the right lower quadrant Plan will be laparoscopic cholecystectomy We will evaluate his appendix but I do not plan on removing it unless it is significantly abnormal We will asked the medical team to follow him postoperatively-[facility] History of Present Illness Chief Complaint: Complaint of abdominal pain Primary Care Provider: DO Dr. Jerrod Byrd presents the emergency room with persistent abdominal pain He is found on CAT scan to have a very distended thickened gallbladder with sludge consistent with acute cholecystitis He also has a mildly dilated appendix which has no inflammation-his symptoms are not localized to the right lower quadrant Allergies Allergy/AdvReac Type Severity Reaction Status Date / Time No Known Allergies Allergy Verified 09/02/17 18:12 Home Medications Medication Instructions Recorded Confirmed Type ASPIRIN (ASPIRIN EC) 81 mg PO DAILY #0 07/11/17 History Albuterol Sulfate (Proventil Hfa) 2 puff INHALATION UD PRN #0 09/02/17 History MELATONIN 10 mg PO HS #0 09/02/17 History esomeprazole magnesium 40 mg 40 mg PO BID #180 cap 11/15/20 Rx capsule,delayed release Past Med/Surg History Social History Smoking Status: Never smoker Feels Safe at Home: Yes Review of Systems All systems reviewed & are unremarkable except as noted in HPI & below Physical Exam Physical Exam: Patient is a healthy-appearing male in no distress His abdomen is flat and soft he does have some discomfort to deep palpation in the upper abdomen Constitutional: well developed and well nourished; no acute distress Eyes: + anicteric sclerae Respiratory: normal respiratory effort; no respiratory distress Cardiovascular: Rate/Rhythm: regular rate Gastrointestinal (Abdomen): Percussion/Palpation: abdomen soft Musculoskeletal: Gait: normal gait Skin: no rashes, warm and dry Neurologic: awake Psychiatric: Orientation: alert Results & Data ([facility]) Vital Signs (Past 12 Hours) Vital Signs Temp Pulse Pulse Resp BP BP Pulse Ox 07/26/21 11:50 64 20 95 07/26/21 11:40 48 L 11 L 95 07/26/21 11:30 73 19 183/99 H 100 07/26/21 11:24 63 20 100 07/26/21 11:20 68 63 18 178/83 H 99 07/26/21 10:31 36.5 C 58 L 18 161/82 H 99 Laboratory Results I reviewed his laboratory values Diagnostic Findings I reviewed his CAT scan
[2021-07-26 14:56] LABS: Appearance Urine Clear (Clear); Bacteria Urine Automated Negative (Negative); Bilirubin Urine Negative (Negative); Blood Urine Negative (Negative); Color Urine Yellow; Epithelial Cell Urine Auto >30 /lpf (0-5); Glucose Urine UA Negative (Negative); Ketones Urine 1+ (Negative); Leukocyte Esterase Urine Negative (Negative); Nitrite Urine Negative (Negative); RBC Urine Automated 0-4 /hpf (0-4); Specific Gravity Urine > 1.045 (1.000-1.030); Urobilinogen Urine Negative (Negative); pH Urine 7.5 (4.5-7.5)
[2021-07-26 14:59] LABS: Protein Urine Trace (Negative)
[2021-07-26] MEDS ORDERED: BUPIVACAINE 0.5 % 5 MG/1 ML MPF 30ML VIAL ONE (15:18)
--- NOTE | 2021-07-26 16:07 | Anesthesiology Consultation ---
Date of Service July 26, 2021 Assessment & Plan (1) Encounter for pre-operative examination: Chart Review Chart Review: Acceptable Risk for Surgery and Patient NOT seen in Pre Admission Testing Consults Requested none History Surgery Operation Date: 07/26/21 15:20 Proposed Procedures p Laparoscopic Cholecystectomy - Nacho Castellanos MD, FACS Height/Weight Height: 5 ft 10 in Weight: 74.3 kg Allergies Allergy/AdvReac Type Severity Reaction Status Date / Time No Known Allergies Allergy Verified 09/02/17 18:12 Medications Home Medications Medication Instructions Recorded Confirmed Last Taken ASPIRIN (ASPIRIN EC) 81 mg PO DAILY #0 07/11/17 07/26/21 Unknown Albuterol Sulfate (Proventil Hfa) 2 puff INHALATION UD PRN #0 09/02/17 07/26/21 Unknown budesonide-formoterol HFA 80 2 puff INHALATION BID 07/26/21 07/26/21 Unknown mcg-4.5 mcg/actuation aerosol inhaler (Symbicort) cholecalciferol (vitamin D3) 125 125 mcg PO DAILY 07/26/21 07/26/21 Unknown mcg (5,000 unit) tablet (Vitamin D3) esomeprazole magnesium 40 mg 40 mg PO QAM 07/26/21 07/26/21 Unknown capsule,delayed release rosuvastatin 20 mg tablet 20 mg PO HS 07/26/21 07/26/21 Unknown sertraline 100 mg tablet 100 mg PO QAM 07/26/21 07/26/21 Unknown NPO Date Last Intake of Fluids: 07/26/21 Time Last Intake of Fluids: 07:00 Date Last Intake of Solids: 07/25/21 Time Last Intake of Solids: 22:00 Past Medical History Medical History (Updated 07/26/21 @ 16:10 by Jaron Bro MD) Anxiety and depression Asthma Dyslipidemia GERD (gastroesophageal reflux disease) Social History Smoking Status: Never smoker Physical Exam Vital Signs Last Vital Signs Temp 36.9 C 07/26/21 15:49 Pulse 75 07/26/21 15:49 Resp 20 07/26/21 15:49 BP 176/117 H 07/26/21 15:49 Pulse Ox 96 07/26/21 15:49 Testing Laboratory Results 07/26/21 11:17 07/26/21 11:17 Urine Color Yellow 07/26/21 14:08 Urine Appearance Clear (Clear) 07/26/21 14:08 Urine pH 7.5 (4.5-7.5) 07/26/21 14:08 Ur Specific [place] > 1.045 (1.000-1.030) H 07/26/21 14:08 Urine Protein Trace (Negative) H 07/26/21 14:08 Urine Glucose (UA) Negative (Negative) 07/26/21 14:08 Urine Ketones 1+ (Negative) H 07/26/21 14:08 Urine Nitrite Negative (Negative) 07/26/21 14:08 Ur Leukocyte Esterase Negative (Negative) 07/26/21 14:08 Urine WBC (Auto) 1-5 /hpf (0-5) 07/26/21 14:08 Urine RBC (Auto) 0-4 /hpf (0-4) 07/26/21 14:08 U Hyaline Cast (Auto) 5-10 /lpf (0-5) H 07/26/21 14:08 U Epithel Cells (Auto) >30 /lpf (0-5) H 07/26/21 14:08 Urine Bacteria (Auto) Negative (Negative) 07/26/21 14:08 Electrocardiogram Date: 07/26/21 Findings: + SB @ (48) possible left atrial enlargement Chest X-Ray Date: 07/26/21 XR chest 1V portable CLINICAL HISTORY: abd pain TECHNIQUE: Single frontal radiograph of the chest was obtained. Comparison: Comparison is made to chest 2 views 10/09/2019 FINDINGS: No lines and tubes are seen. The cardiomediastinal silhouette is normal. The lungs are clear. No evidence of pleural effusion or pneumothorax. IMPRESSION: No acute chest disease. ACT 112: Negative or not required by law. Electronically signed by: Joe Guzmán M.D. 07/26/2021 11:49 AM Other Testing ABDOMEN AND PELVIS CT WITH IV CONTRAST CT DOSE: 658.85 mGycm HISTORY: Acute generalized abdominal pain with nausea and vomiting abd pain TECHNIQUE: Multiaxial CT images of the abdomen and pelvis were performed follow ing the IV administration of 93 cc of Optiray, A dose lowering technique was utilized adhering to the principles of ALARA. COMPARISON STUDY: None. FINDINGS: Imaged inferior cardiac chambers are unremarkable. Clear lung bases. No pneumatosis or pneumoperitoneum. Unremarkable spleen, pancreas, adrenal glands and liver appear unremarkable. Patency of the portal vein. Distended gallbladder measures up to 10 cm in length. Mild associated wall thickening with trace pericholecystic edema. Mild extrahepatic biliary ductal prominence. No choledocholithiasis identified. Sludge within the gallbladder neck without definite cholelithiasis. There are several nonobstructing calculi of the bilateral kidneys measuring up to 3 mm on the left and 4 mm on the right. No ureteral calculi or hydronephrosis. Prostamegaly. Unremarkable urinary bladder. Phleboliths of the pelvis. Aorta and IVC are unremarkable. Surgical clips of the upper scrotum. Mild distal esophageal wall thickening with small hiatal hernia. Prominent lymph nodes adjacent to the distal esophagus measure up to 8 mm, likely reactive. No bowel obstruction or bowel wall thickening. The large bowel is predominately decompressed. The appendix is mildly dilated measuring up to 9 mm. No periappendiceal inflammation. Unremarkable soft tissues. There is no acute fracture. IMPRESSION: 1. Distended gallbladder with mild wall thickening and trace pericholecystic fluid is suggestive of acute cholecystitis. 2. The appendix is distended measuring up to 9 mm. There is no periappendiceal inflammation to suggest acute appendicitis. This may be physiologic with an underlying appendiceal lesion also within the differential. Surgical consult ation is recommended. 3. No bowel obstruction or bowel wall thickening. 4. Mild distal esophageal wall thickening with small hiatal hernia. 5. Nonobstructing bilateral nephrolithiasis. ACT 112: Negative or not required by law. The above report was generated using voice recognition software. It may contain grammatical, syntax or spelling errors. Electronically signed by: Bryant Valdivia M.D. 07/26/2021 12:51 PM Dictated:07/26/21 [id number]
[2021-07-26] MEDS ORDERED: LARYING-O-JET KIT (LTA) ONE (16:52)
[2021-07-26] MEDS ORDERED: ePHEDrine sulfate 50 MG/ML AMP ONE (16:52)
[2021-07-26] MEDS ORDERED: FLOSEAL HEMOSTATIC MATRIX 10ML TOP ONE (17:11)
--- NOTE | 2021-07-26 17:30 | Post Operative Brief Note ---
PG Immediate Post Op with CF Date of Surgery July 26, 2021 Pre & Post Diagnosis Operation Date: 07/26/21 15:20 Pre-Op Diagnosis: Acute cholecystitis Post-Op Diagnosis: Acute cholecystitis, necrotizing cholecystitis with chronic adhesions I identified the patient and participated in the time-out.: Yes Procedure Operation Date: 07/26/21 15:20 Actual Procedures p Laparoscopic Cholecystectomy - Nacho Castellanos MD, FACS Surgeon Nacho Castellanos MD, FACS [employer] Eulogio Almanza Estimated Blood Loss 15 Findings Consistent with Post-Op Diagnosis Chronic dense adhesions severely inflamed gallbladder consistent with necrotizing cholecystitis Also chronic cholecystitis Specimens Specimen Description: a. gallbladder and contents
[2021-07-26] MEDS ORDERED: ACETAMINOPHEN 1,000 MG/100 ML VIAL IV ONE (17:31)
[2021-07-26] MEDS ORDERED: ACETAMINOPHEN 1000 MG/100 ML IV IV ONE (17:46)
--- NOTE | 2021-07-26 18:37 | Anesthesiology Progress Note ---
Date of Service July 26, 2021 Anesthesia Post Procedure Vital Signs Vital Signs: Temp Pulse Pulse Pulse Resp BP BP 07/26/21 18:15 37.1 C 72 18 135/73 07/26/21 18:05 37.1 C 77 14 144/76 H 07/26/21 17:55 79 17 150/75 H 07/26/21 17:45 74 20 160/86 H 07/26/21 17:39 80 19 160/91 H 07/26/21 15:49 36.9 C 75 20 176/117 H 07/26/21 14:40 07/26/21 14:30 07/26/21 14:20 07/26/21 14:13 07/26/21 14:00 66 15 179/93 H 07/26/21 13:50 69 21 07/26/21 13:40 74 18 07/26/21 13:30 67 14 160/88 H 07/26/21 13:20 75 18 07/26/21 13:10 72 21 07/26/21 13:00 73 14 07/26/21 12:50 57 L 23 07/26/21 12:40 62 19 07/26/21 12:30 65 19 07/26/21 12:24 88 18 07/26/21 12:00 63 22 142/73 H 07/26/21 11:50 64 20 07/26/21 11:40 48 L 11 L 07/26/21 11:30 73 19 183/99 H 07/26/21 11:24 63 20 07/26/21 11:20 68 63 18 178/83 H 07/26/21 10:31 36.5 C 58 L 18 161/82 H Pulse Ox 07/26/21 18:15 94 07/26/21 18:05 95 07/26/21 17:55 98 07/26/21 17:45 98 07/26/21 17:39 98 07/26/21 15:49 96 07/26/21 14:40 94 07/26/21 14:30 96 07/26/21 14:20 95 07/26/21 14:13 96 07/26/21 14:00 95 07/26/21 13:50 95 07/26/21 13:40 95 07/26/21 13:30 95 07/26/21 13:20 94 07/26/21 13:10 94 07/26/21 13:00 98 07/26/21 12:50 07/26/21 12:40 07/26/21 12:30 07/26/21 12:24 07/26/21 12:00 96 07/26/21 11:50 95 07/26/21 11:40 95 07/26/21 11:30 100 07/26/21 11:24 100 07/26/21 11:20 99 07/26/21 10:31 99 Pain Intensity Abdomen: Pain Intensity: 1 Transfer of Care Handoff Completed per policy Notes Mental Status: alert / awake / arousable Patient Amnestic to Procedure: Yes Nausea / Vomiting: adequately controlled Pain: adequately controlled Airway Patency, RR, SpO2: stable & adequate BP & HR: stable & adequate Hydration State: stable & adequate Anesthetic Complications: no major complications apparent and Pt Satisfied with anesthetic care
[2021-07-26] MEDS ORDERED: PROMETHAZINE HCL 12.5 MG in SODIUM CHLORIDE 0.9% 50 ML IV PRN (19:46)
[2021-07-26] MEDS ORDERED: PROMETHAZINE HCL 25 MG in SODIUM CHLORIDE 0.9% 50 ML IV PRN (19:46)
[2021-07-26] MEDS ORDERED: ONDANSETRON INJ 2 MG/ML 2 ML VIAL IV PRN (19:46)
[2021-07-26] MEDS ORDERED: oxyCODONE HCL IR 5 MG TAB (IMMEDIATE RELEASE) PO PRN (19:46)
[2021-07-26] MEDS ORDERED: ACETAMINOPHEN 325 MG TAB PO PRN (19:46)
[2021-07-26] MEDS ORDERED: HYDROmorphone INJ 1 MG/ML SYRINGE IV PRN (19:46)
[2021-07-26] MEDS ORDERED: PIPERACILL/TAZOBAC CONSULT ACTIVE PRN (19:46)
--- NOTE | 2021-07-26 20:08 | Operative Report (OR) ---
DATE OF OPERATION: 07/26/2021 NAME OF OPERATION: Laparoscopic cholecystectomy with lysis of adhesions. PREOPERATIVE DIAGNOSIS: Acute cholecystitis. POSTOPERATIVE DIAGNOSIS: Acute cholecystitis with necrotizing cholecystitis and chronic adhesions. STAFF SURGEON: Nacho Castellanos MD. CHALK TESTER: Abdulaziz Almanza PA-C. ANESTHESIA: General. DESCRIPTION OF PROCEDURE: The patient was brought in the operating room and placed on the operating table in supine position. My assistant spa director helped with prepping, draping, removal of gallbladder and sudhakar sure of the wounds. A 0.5% plain Marcaine was used to anesthetize all incisions. Incision was made above the umbilicus, carrying dissection down, placing a Veress needle producing pneumoperitoneum, pl acing an 11 mm port. Under visualization, three 5 mm ports were placed, one cephalad and two lateral ly. Gallbladder was severely distended. It was hemorrhagic. It was consistent with necrotizing cho lecystitis. There were chronic adhesions to the gallbladder. The gallbladder was aspirated of bile. There were stones in the neck of the gallbladder, obstructing the gallbladder. Gallbladder was ret racted. Dissection carried out to the dimitrios hepatis, identifying the cystic duct and cystic artery. There was severe inflammation in this area. These were clipped and transected. Gallbladder was dis sected away from the liver bed showing severe edema in the posterior wall of the gallbladder. Gallbl adder was placed in an Endobag. After appropriate irrigation and hemostasis, FloSeal was used and pl aced into the subhepatic space. Gallbladder was then removed through the umbilical site. I had to i ncrease the length of the fascial defect and skin to remove the large gallbladder. It did contain 2 large stones. At this point, fascia at the umbilicus closed using 0 PDS suture and then the skin mabel pproximated using subcuticular 4-0 Monocryl and Dermabond. The patient was transferred to recovery r o in stable condition. Job ID: [id number]
[2021-07-26] MEDS: HYDROmorphone INJ 0.5 MG/0.5 ML SYR IV PRN (21:15)
[2021-07-26] MEDS ORDERED: ALUMINUM/MAGNESIUM/SIMETH (MAALOX MAX) 30 ML UDC PO STA (23:19)
[2021-07-26] MEDS ORDERED: ALBUTEROL HFA 8 GM INHALER INH PRN (23:40)
[2021-07-27] MEDS ORDERED: ALUMINUM/MAGNESIUM/SIMETH (MAALOX MAX) 30 ML UDC PO PRN ×2 (00:01→00:02)
[2021-07-27] MEDS: OMEPRAZOLE 20 MG CAPCR PO SCH ×2 (00:20→08:52)
[2021-07-27] MEDS: PIPERACILLIN/TAZOBACTAM 3.375 GM in DEXTROSE 5% 100 ML IV SCH ×2 (00:21→08:50)
[2021-07-27] MEDS: SODIUM CHLORIDE 0.9% 500 ML IV SCH ×3 (00:26→08:51)
--- NOTE | 2021-07-27 00:44 | History and Physical Report ---
DATE OF CONSULTATION: 07/26/2021. CHIEF COMPLAINT: Abdominal pain, acute cholecystitis, status post laparoscopic cholecystectomy. HISTORY OF PRESENT ILLNESS: This is a 61-year-old male with past medical history significant for COPD, reflux esophagitis, benign neoplasm of colon, BPH, history of DVT, who presents here with severe abdominal pain. The patient says he woke up in the morning around 4:00 a.m. with abdominal pain, all over with generalized abdominal pain and he was nauseous and vomiting, which was not getting better, but initially thought it could be constipation because he had similar mild episodes a couple of times in the recent past, but as this was not getting better, came to the ER and imaging studies showed acute cholecystitis. The patient is status post laparoscopic cholecystectomy, tolerated the procedure fine. Currently resting comfortably and has some GERD symptoms . Abdominal pain has improved. Denies any chest pain, no shortness of breath, no cough, no headache, no neck pain, no back pain, no blurred visions. Currently, no nausea. Had normal bowel movement in the morning. No swelling in the legs, no rash. ALLERGIES: No known drug allergies. PAST MEDICAL HISTORY: As mentioned above. PAST SURGICAL HISTORY: Colonoscopy, colonoscopy with biopsy, EGD, history of vasectomy. MEDICATIONS: The patient is on albuterol 2 puffs inhalation p.r.n., aspirin 81 mg p.o. daily, Symbicort 2 puffs inhalation b.i.d., vitamin D 125 mcg p.o. daily, Nexium 40 mg p.o. daily, atorvastatin 20 mg p.o. at bedtime, sertraline 100 mg p.o. a.m. FAMILY HISTORY: Significant for father had bladder cancer; brother had colon cancer; mother has eye problems, colonic polyps, hypertension, and ovarian cancer. SOCIAL HISTORY: , no smoking. Alcohol 1-2 beers five nights a week. No drug use. REVIEW OF SYSTEMS: As per HPI. Rest of the review of systems is negative. PHYSICAL EXAMINATION: GENERAL: The patient is of moderate build, not in acute distress. VITAL SIGNS: Temperature 36.8, pulse 89, respiratory rate 16, blood pressure 162/83, oxygen 95% on room air. HEENT: Head is atraumatic. NECK: No JVD. No neck masses, no carotid bruits. CARDIOVASCULAR: S1 and S2 heard. Regular rate and rhythm. No murmur, no gallop. RESPIRATORY SYSTEM: Normal AP diameter. No accessory muscle use. No wheezing, no crackles. ABDOMEN: Soft, bowel sounds sluggish. Laparoscopic surgical sites are clean, no distention. CENTRAL NERVOUS SYSTEM: Alert and awake. Speech is clear. Moves extremities. EXTREMITIES: No edema, no erythema. LABORATORY DATA: WBC 11.7, hemoglobin 15.5, hematocrit 44.8, platelets 300. Sodium 138, potassium 3.5, chloride 106, bicarbonate 22, BUN 18, creatinine 1.15. Serum glucose 137, calcium 9.7, total bilirubin 0.9, AST 18, ALT 26, alkaline phosphatase 143. Troponin I less than 0.015. Lipase 83. Urinalysis, +1 ketones. SARS-CoV-2 PCR negative. IMAGING DATA: Chest x-ray, no acute chest disease. CT of the abdomen and pelvis, distended gallbladder with mild wall thickening and trace pericholecystic fluid suggestive of acute cholecystitis. Appendix 9 mm. There is no periappendiceal inflammation to suggest acute appendicitis, this may be physiological with an underlying appendiceal lesion also within the differential. Surgical consultation is recommended. No bowel obstruction or bowel wall thickening. Mild distal esophageal wall thickening with small hiatal hernia, small nonobstructive bilateral nephrolithiasis. EKG: Sinus bradycardia at a rate of 48, possible left atrial enlargement. ASSESSMENT AND PLAN: This is a 61-year-old male with abdominal pain and found to have acute cholecystitis. 1. Acute cholecystitis: Status post laparoscopic cholecystitis. On zosyn. Further management as per surgery. 2. History of reflux esophagitis: At home on Nexium..Currently on Prilosec and Maalox prn 3. History of chronic obstructive pulmonary disease: Continue home inhalers, currently stable. 4. Hyperlipidemia: Continue statin. 5. Deep venous thrombosis prophylaxis and disposition as per general surgery. Job ID: [id number] [facility]
[2021-07-27 05:43] LABS: Basophils # (auto) 0.01 K/uL (0-0.2); Basophils % (auto) 0.1 %; Hematocrit (blood only) 41.2 % (42-52); Hemoglobin 13.8 g/dL (14.0-18.0); Immature Granulocytes # (auto) 0.02 K/uL (0.00-0.02); Immature Granulocytes % (auto) 0.2 %; Lymphocytes # (auto) 0.76 K/uL (1.2-3.4); Lymphocytes % (auto) 5.7 %; Mean Corpuscular Hemoglobin 30.9 pg (25-34); Mean Corpuscular Hgb Conc 33.5 g/dL (32-36); Mean Corpuscular Volume 92.2 fL (80-100); Mean Platelet Volume 10.4 fL (7.4-10.4); Monocytes % (auto) 4.5 %; Neutrophils # (auto) 11.85 K/uL (1.4-6.5); Neutrophils % (auto) 89.5 %; Platelet Count 250 K/uL (130-400); RDW Standard Deviation 43.3 fL (36.4-46.3); Red Blood Count 4.47 M/uL (4.7-6.1); White Blood Count 13.24 K/uL (4.8-10.8)
--- NOTE | 2021-07-27 06:08 | Electrocardiogram Report ---
Test Reason : Blood Pressure : / mmHG Vent. Rate : 048 BPM Atrial Rate : 048 BPM P-R Int : 174 ms QRS Dur : 088 ms QT Int : 464 ms P-R-T Axes : 073 023 049 degrees QTc Int : 414 ms Sinus bradycardia Possible Left atrial enlargement Nonspecific ST abnormality When compared with ECG of 01-MAR-2008 07:05, Vent. rate has decreased BY 28 BPM Confirmed by Jose Gallardo ([id number]) on 07/27/2021 6:08:21 AM Referred By: Confirmed By:Jose Gallardo
[2021-07-27 06:14] LABS: BUN Creatinine Ratio 14.6 (10-20); Bilirubin Direct 0.2 mg/dl (0-0.2); Calcium 8.8 mg/dl (8.5-10.1); Creatinine Clr Calc Pharmacy 80.1 ml/min; Est GFR (African American) 93.7 ml/min; Est GFR (Non-African American) 80.9 ml/min
[2021-07-27 06:16] LABS: Albumin Globulin Ratio 0.8 (0.9-2); Bilirubin,Total 0.7 mg/dl (0.2-1); Globulin 3.8 gm/dl (2.5-4.0); Phosphorus 3.6 mg/dl (2.5-4.9); Total Protein 6.8 gm/dl (6.4-8.2)
[2021-07-27] MEDS ORDERED: SERTRALINE HCL 100 MG TABLET PO SCH (09:00)
[2021-07-27] MEDS ORDERED: ASPIRIN 81 MG ECTAB PO SCH (09:00)
[2021-07-27] MEDS ORDERED: CHOLECALCIFEROL 1,000 UNITS 25 MCG TAB PO SCH (09:00)
[2021-07-27] MEDS ORDERED: FLUTICASONE/VILANTEROL 100/25MCG 14 PUFFS/INHALER INH SCH (09:00)
[2021-07-27] MEDS ORDERED: HEPARIN SOD 5,000 UNIT/0.5 ML VIAL SQ SCH (09:00)
[2021-07-27] MEDS ORDERED: NON-FORMULARY MEDICATION (Esomeprazole Magnesium 40 mg capsule,delayed release(DR/EC)) PO SCH (09:00)
--- NOTE | 2021-07-27 10:25 | Hospitalist Progress Note ---
Date of Service July 27, 2021 Assessment & Plan (1) Acute cholecystitis: Plan: Status post laparoscopic cholecystectomy by Dr. Castellanos, postoperative day 1. Hemorrhagic necrotic appearing gallbladder per operative report. Patient is healing well with minimal pain appropriately controlled with oral medications. He is tolerating p.o. and reports passing flatus. He is ambulating independently. Wounds are well-healing. He is currently on Zosyn. Antibiotics per general surgery. (2) S/P laparoscopic cholecystectomy: Plan: Continue plan per above. (3) Postoperative urinary retention: Plan: Likely the result of underlying BPH with known LUTS in setting of recent anesthesia. Patient had recent outpatient urology consultation set up but this had to be canceled and will be rescheduled. In the meantime, he is resistant to a Wasserman. We will ask urology to see him inpatient and discuss options. Notably patient is orthostatic to Flomax. (4) BPH w urinary obs/LUTS: Plan: Plan per above (5) Dyslipidemia: Plan: Continue rosuvastatin per home regimen. (6) GERD (gastroesophageal reflux disease): Plan: Continue Protonix and when discharged oral PPI. Discussed distal esophageal thickening on CT scan. Per outpatient medical records there is no prior CT scan to compare. 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 Symptoms are much improved since yesterday. (7) DVT prophylaxis: Plan: Heparin/ambulation Full code Disposition-discharged home today per surgery. Will likely need Wasserman but will wait for formal urology recommendations. Maite Eric DO [facility] Admission and Anticipated Discharge Date Admission Date: July 26, 2021 Subjective 61-year-old man presented with acute cholecystitis status post laparoscopic cholecystectomy by Dr. Castellanos postoperative day 1. Reports pain is approximately 3-4 and well managed with current medical therapy. He is otherwise reporting no symptoms however is reporting incomplete urinary voiding. Bedside bladder scan reveals 661. Patient typically has lower urinary tract symptoms including incomplete voiding at home. Reports urinating 3-4 times prior to work then approximately once per hour during the day. No nocturia reported. Denies additional abdominal discomfort related to this. Prefers not to have Wasserman or straight cath. Urology contacted and case discussed. Of note patient is also orthostatic with Flomax. History of GERD with worsened acid reflux last night secondary to vomiting preoperatively. Feels improved today. We reviewed the current CAT scan regarding thickened distal esophageal mucosa and associated presumed reactive lymphadenopathy. Tolerating diet well, afebrile. On Zosyn. Review of Systems Review of Systems: All systems reviewed and negative except as indicated in subjective above. Physical Exam Physical Exam: CONSTITUTIONAL: WNWD, vitals as above, generally well- appearing, NAD EYES: normal conjunctivae, no scleral icterus ENT: external ear and nose normal, MMM NECK: trachea midline RESPIRATORY: clear to auscultation bilaterally outside of some minor coarse crackles at bases bilaterally,no rales or wheezes, normal respiratory effort CARDIOVASCULAR: regular rate and rhythm, S1 and 2 heard without murmurs, gallops or rubs, no JVD, no peripheral edema, no carotid bruits CHEST: inspection of chest was normal GASTROINTESTINAL: soft, mild tenderness around incision sites which are closed and well-healing, no guarding or distension MUSCULOSKELETAL: strength 5/5 throughout, head is normocephalic and atraumatic SKIN: warm and dry NEUROLOGIC: CN 2-12 grossly intact, normal cognition, normal speech, no tremor, no gross focal deficits. Ambulating independently without issue. PSYCHIATRIC: alert cooperative and oriented to person, place and time. Results & Data Results & Data ([facility]) Vital Signs (Past 12 Hours) Vital Signs Temp Pulse Resp BP Pulse Ox Pulse Ox 07/27/21 07:51 36.8 C 63 14 156/83 H 95 07/27/21 03:53 36.9 C 75 16 157/76 H 94 07/27/21 00:30 37.0 C 74 16 156/76 H 92 07/27/21 00:05 92 07/26/21 23:15 37 C 74 16 170/84 H 91 07/26/21 22:45 37 C 67 16 165/81 H 91 07/26/21 22:21 36.8 C 89 16 162/83 H 95 07/26/21 22:19 36.8 C 89 16 162/83 H 95 Laboratory Results Short CBC 07/26/21 07/27/21 Range/Units 11:17 05:25 WBC 11.77 H 13.24 H (4.8-10.8) K/uL Hgb 15.5 13.8 L (14.0-18.0) g/dL Hct 44.8 41.2 L (42-52) % Plt Count 300 250 (130-400) K/uL BMP 07/26/21 07/27/21 11:17 05:25 Sodium 138 138 Potassium 3.5 4.0 Chloride 106 107 Carbon Dioxide 22 25 BUN 18 15 Creatinine 1.15 1.00 Glucose 137 H 144 H Calcium 9.7 8.8 Cardiac Enzymes 07/26/21 Range/Units 11:17 Troponin I < 0.015 (0-0.045) ng/ml Liver Function 07/26/21 07/27/21 Range/Units 11:17 05:25 Total Bilirubin 0.9 0.7 (0.2-1) mg/dl Direct Bilirubin 0.2 (0-0.2) mg/dl AST 18 45 H (15-37) U/L ALT 23 47 (12-78) U/L Alkaline Phosphatase 143 H 114 (45-117) U/L Albumin 3.9 3.0 L (3.4-5.0) gm/dl Urine 07/26/21 Range/Units 14:08 Urine Color Yellow Urine Appearance Clear (Clear) Urine pH 7.5 (4.5-7.5) Ur Specific [place] > 1.045 H (1.000-1.030) Urine Protein Trace H (Negative) Urine Glucose (UA) Negative (Negative) Medications Administered Current Inpatient Medications Acetaminophen (Acetaminophen 325 Mg Tab) 650 mg PO Q4H PRN PRN Reason: Pain Stop: 08/25/21 19:45 Al Hydrox/Mg Hydrox/Simethicone (Aluminum/Magnesium/Simeth (Maalox Max) 30 Ml Udc) 30 ml PO Q4H PRN PRN Reason: Dyspepsia Stop: 08/26/21 00:00 Last Admin: 07/27/21 00:28 Dose: 30 ml Documented by: Albuterol (Albuterol Hfa 8 Gm Inhaler) 2 puffs INH DAILY PRN PRN Reason: Exercise Induced Asthma Stop: 08/25/21 23:39 Aspirin (Aspirin 81 Mg Ectab) 81 mg PO DAILY QI Stop: 08/26/21 08:59 Last Admin: 07/27/21 08:54 Dose: 81 mg Documented by: Fluticasone/Vilanterol (Fluticasone/Vilanterol 100/25mcg 14 Puffs/Inhaler) 1 puffs INH DAILY QI Stop: 08/26/21 08:59 Last Admin: 07/27/21 08:54 Dose: Not Given Documented by: Heparin Sodium (Porcine) (Heparin Sod 5,000 Unit/0.5 Ml Vial) 5,000 units SQ Q12 [facility] Stop: 08/26/21 08:59 Last Admin: 07/27/21 08:52 Dose: Not Given Documented by: Hydromorphone HCl (Hydromorphone Inj 0.5 Mg/0.5 Ml Syr) 0.5 mg IV Q3HWA PRN PRN Reason: Moderate Pain Stop: 08/09/21 19:45 Last Admin: 07/26/21 21:15 Dose: 0.5 mg Documented by: Hydromorphone HCl (Hydromorphone Inj 1 Mg/Ml Syringe) 1 mg IV Q3HWA PRN PRN Reason: Severe Pain Stop: 08/09/21 19:45 Sodium Chloride (Nss) 500 mls @ 80 mls/hr IV .Q6H15M [facility] Stop: 08/25/21 19:59 Last Admin: 07/27/21 08:51 Dose: Not Given Documented by: Promethazine HCl 25 mg/ Sodium (Chloride) 51 mls @ 204 mls/hr IV Q6H PRN PRN Reason: Nausea And Vomiting Stop: 08/25/21 19:45 Piperacillin Sod/Tazobactam (Sod 3.375 gm/ Dextrose) 115 mls @ 230 mls/hr IV Q8H [facility]; Protocol Stop: 08/05/21 19:59 Last Admin: 07/27/21 08:50 Dose: 28.8 mls/hr Documented by: Promethazine HCl 12.5 mg/ (Sodium Chloride) 50.5 mls @ 204 mls/hr IV Q6H PRN PRN Reason: Nausea And Vomiting Stop: 08/25/21 19:45 Miscellaneous Information (Piperacill/Tazobac Consult Active) 1 ea N/A UD PRN PRN Reason: Consult Stop: 08/25/21 19:45 Omeprazole (Omeprazole 20 Mg Capcr) 40 mg PO BID [facility] Stop: 08/26/21 00:14 Last Admin: 07/27/21 08:52 Dose: 40 mg Documented by: Ondansetron HCl (Ondansetron Inj 2 Mg/Ml 2 Ml Vial) 4 mg IV 4XDQ4H PRN PRN Reason: Nausea Stop: 08/25/21 19:45 Oxycodone HCl (Oxycodone Hcl Ir 5 Mg Tab (Immediate Release)) 5 mg PO Q4HWA PRN PRN Reason: Pain Stop: 08/09/21 19:45 Last Admin: 07/27/21 04:35 Dose: 5 mg Documented by: Rosuvastatin Calcium (Rosuvastatin Calcium 20 Mg Tab) 20 mg PO HS QI Stop: 08/26/21 20:59 Sertraline HCl (Sertraline Hcl 100 Mg Tablet) 100 mg PO QAM QI Stop: 08/26/21 08:59 Last Admin: 07/27/21 08:53 Dose: 100 mg Documented by: Vitamin D (Cholecalciferol 1,000 Units 25 Mcg Tab) 5,000 units PO DAILY QI Stop: 08/26/21 08:59 Last Admin: 07/27/21 08:55 Dose: 5,000 units Documented by:
[2021-07-27] MEDS: HYDROmorphone INJ 0.5 MG/0.5 ML SYR IV PRN (10:46)
--- NOTE | 2021-07-27 10:46 | Urology Consultation ---
Date of Consultation July 27, 2021 Assessment & Plan (1) Postoperative urinary retention: 61 year-old male patient admitted with acute cholecystitis s/p laparoscopic cholecystectomy with lysis of adhesions with Dr. Castellanos on 07/26/21. -Urology consulted for acute postoperative urinary retention. -Urinary retention likely multifactorial including recent procedure, anesthesia, underlying BPH. -Patient afebrile. -Labs reviewed - creatinine this AM stable. -Urinalysis on admission not suspicious for infection. -Imaging reviewed - findings notable for bilateral nonobstructing renal calculi and prostatomegaly. -Most recent bladder scan >600 ml. Discussed recommendations for beth catheter placement to allow bladder rest/decompression, he is agreeable. -Plan to place indwelling beth catheter today, recommend maintaining for 5-7 days. -Patient with prior history of orthostatic hypotension with Tamsulosin. Can consider trial of Alfuzosin, monitoring closely for dizziness. -Will arrange outpatient follow-up with urology service for voiding trial, continued care. -Expected clinical course reviewed with patient, all questions answered. Thank you for allowing us to participate in the acute care of Mr. Elder. Please reconsult us with additional questions, concerns or changes in patient status. History of Present Illness Reason for Consultation: Acute urinary retention Requesting Physician: Dr. Eric Attending Physician: Nacho Castellanos MD, [facility] History of Present Illness 61-year-old male patient, with past medical history significant for COPD, reflux esophagitis, benign neoplasm of colon, BPH, history of DVT, and other comorbidities listed below, presented to the emergency room on 07/26 with complaints of abdominal pain. He was diagnosed with acute cholecystitis and underwent laparoscopic cholecystectomy with lysis of adhesions with Dr. Castellanos on 07/26/21. Postoperative surgical course was uncomplicated with plans for discharge today. Urology consulted for acute urinary retention. Patient has not followed with urology in the past. He had outpatient appointment with [facility] urology service last week, however appointment was cancelled and not yet rescheduled. Trialed Tamsulosin several months ago but developed sinus congestion and intermittent orthostatic hypotension, no longer taking. Not currently taking home medications for urinary pattern. Bladder scan this AM 661 cc. Chart review: Afebrile Wbc 13.24 Hgb 13.8 Creatinine 1.00 Urinalysis 07/26 - 1-5 wbc, 0-4 rbc, >30 epi, negative bacteria, negative leukocytes, negative nitrates. Imaging - CT abd/pelvis with IV contrast - IMPRESSION: 1. Distended gallbladder with mild wall thickening and trace pericholecystic fluid is suggestive of acute cholecystitis. 2. The appendix is distended measuring up to 9 mm. There is no periappendiceal inflammation to suggest acute appendicitis. This may be physiologic with an underlying appendiceal lesion also within the differential. Surgical consultation is recommended. 3. No bowel obstruction or bowel wall thickening. 4. Mild distal esophageal wall thickening with small hiatal hernia. 5. Nonobstructing bilateral nephrolithiasis. Patient seen and examined at bedside. He is alert, awake, appears comfortable. Non-toxic on exam. Does report generalized abdominal discomfort, recently received dose of IV pain medication. Denies flank pain. Currently reports urgency/frequency with decreased urine output with voiding. Has degree of bladder pain/pressure. Denies dysuria or hematuria. Denies fevers or chills. Denies nausea or vomiting. Baseline urinary symptoms include some urinary frequency/urgency, noted mostly in the morning hours. No dysuria or hematuria. Typically will not wake in the middle of the night to urinate. Reports he does not always feel like he empties his bladder at baseline. Denies additional urologic concerns today. Allergies Allergy/AdvReac Type Severity Reaction Status Date / Time No Known Allergies Allergy Verified 09/02/17 18:12 Home Medications Medication Instructions Recorded Confirmed Type ASPIRIN (ASPIRIN EC) 81 mg PO DAILY #0 07/11/17 07/26/21 History Albuterol Sulfate (Proventil Hfa) 2 puff INHALATION UD PRN #0 09/02/17 07/26/21 History budesonide-formoterol HFA 80 2 puff INHALATION BID 07/26/21 07/26/21 History mcg-4.5 mcg/actuation aerosol inhaler (Symbicort) cholecalciferol (vitamin D3) 125 125 mcg PO DAILY 07/26/21 07/26/21 History mcg (5,000 unit) tablet (Vitamin D3) esomeprazole magnesium 40 mg 40 mg PO QAM 07/26/21 07/26/21 History capsule,delayed release rosuvastatin 20 mg tablet 20 mg PO HS 07/26/21 07/26/21 History sertraline 100 mg tablet 100 mg PO QAM 07/26/21 07/26/21 History alfuzosin 10 mg tablet,extended 10 mg PO HS #30 tab 07/27/21 Rx release 24 hr amoxicillin 875 mg-potassium 1 tab PO BID #10 tab 07/27/21 Rx clavulanate 125 mg tablet (Augmentin) hydrocodone 5 mg-acetaminophen 325 1 tab PO Q4H PRN #30 tab 07/27/21 Rx mg tablet Patient History Medical History Anxiety and depression Asthma BPH w urinary obs/LUTS Dyslipidemia GERD (gastroesophageal reflux disease) Surgical History (Updated 07/27/21 @ 12:02 by Jelena Baca RN) Hx laparoscopic cholecystectomy (07/26/21) Laparoscopic cholecystectomy with lysis of adhesions. Dr. Castellanos 07-26-2021 Social History Smoking Status: Never smoker Hx Alcohol Use: Yes Alcohol type: beer, wine and hard liquor Hx Substance Use: No Preferred Language: Tanzanian Communication Ability: Effective Visual Impairment: No Limitations French Instructor Required: No Beliefs That Will Affect Care: None Current Living Situation: Spouse Feels Safe at Home: Yes Assistive Devices: Glasses Review of Systems Constitutional: as per Subjective / HPI; no fever and no chills Ear, Nose, Mouth, Throat: as per Subjective / HPI Respiratory: no cough and no dyspnea Cardiovascular: no chest pain and no edema Gastrointestinal: as per Subjective / HPI Genitourinary: + as per Subjective / HPI Musculoskeletal: as per Subjective / HPI Neurologic: no dizziness Endocrine: no problem reported Hematologic / Lymphatic: no easy bleeding and no easy bruising Physical Exam Constitutional: well developed and well nourished; no acute distress and not ill appearing ENMT: Ears: no external ear abnormality Mask present Neck: normal visual inspection and trachea midline Respiratory: normal respiratory effort and able to speak in complete sentences; no respiratory distress and no audible wheezes Gastrointestinal (Abdomen): Inspection/Auscultation: abdomen normal to inspection; abdomen not distended Percussion/Palpation: abdomen soft; no guarding Musculoskeletal: Moves all extremities without difficulty. Skin: No visible rashes, lesions, or wounds noted. Neurologic: moves all extremities and awake Psychiatric: Orientation: alert, oriented x 3 and cooperative Affect: euthymic affect Results & Data ([facility]) Vital Signs (Past 12 Hours) Vital Signs Temp Pulse Resp BP Pulse Ox Pulse Ox 07/27/21 07:51 36.8 C 63 14 156/83 H 95 07/27/21 03:53 36.9 C 75 16 157/76 H 94 07/27/21 00:30 37.0 C 74 16 156/76 H 92 07/27/21 00:05 92 07/26/21 23:15 37 C 74 16 170/84 H 91 07/26/21 22:45 37 C 67 16 165/81 H 91 PG Care Time/CCT Total # of Minutes Spent Total Time Spent with Patient: Total time spent is greater than 50% in coordination of care (as documented) at patient's floor/unit and/or counseling patient: Coding Level of Care Code 10977 Inpt Consult Level 3 Diagnoses Postoperative urinary retention N99.89; R33.8
--- NOTE | 2021-07-27 11:10 | Discharge Summary (DS) ---
DATE OF ADMISSION: 07/26/2021 DATE OF DISCHARGE: 07/27/2021 PRINCIPAL DIAGNOSIS: Necrotizing cholecystitis. HISTORY OF PRESENT ILLNESS: The patient is a 61-year-old male presenting to the Emergency Room with severe abdominal pain and found to have a severely dilated thickened gallbladder with sludge consiste nt with acute cholecystitis. The patient was taken to the operating room where he underwent laparosc opic cholecystectomy with lysis of adhesions. He did have necrotizing cholecystitis with chronic adh esions from chronic cholecystitis. He has done well overnight and is felt stable for discharge home today to be followed in the surgical clinic within 1-2 weeks. We will continue him on oral antibioti cs and pain medication. Job ID: [id number]
[2021-07-27] MEDS ORDERED: LIDOCAINE 2% JELLY 5 ML TUBE EXT STA (11:25)
[2021-07-27] MEDS ORDERED: ROSUVASTATIN CALCIUM 20 MG TAB PO SCH (21:00)
== END 2021-07-27 14:46 | disposition home or self-care (01) ==
LOC: ED 10:25 → OR 15:46 → INTOOBSV 17:31 → PACUINP 17:31 → 3N 22:12